=== PATIENT | female | born 1980 | race Caucasian/White ===

== ENCOUNTER 2018-09-01 16:57 | Emergency (ER) | payer BC ==
[~2018-09-01] VITALS: Ht 162.6 cm; Wt 104.5 kg
[2018-09-01 17:10] VITALS: Ht 162.6 cm; Wt 104.5 kg
[2018-09-01] MEDS ORDERED: ONDANSETRON (ODT) 4 MG TAB ODT STA (18:30)
[2018-09-01] MEDS ORDERED: KETOROLAC 30 MG INJ IM STA (18:30)
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
[2018-09-01] MEDS ORDERED: LORAZEPAM 0.5 MG TAB PO ONE (19:00)
[2018-09-01] MEDS ORDERED: ONDA4TAB14 PO (19:52)
[2018-09-01] MEDS ORDERED: NAPR-985 PO (19:52)
[2018-09-01] MEDS ORDERED: CYCL10TA7 PO (19:52)
[2018-09-01 20:10] VITALS: BP 139/67; PULSE 97; RESP 20
== END 2018-09-01 20:11 | disposition home or self-care (01) ==
LOC: FTE 16:57
DX: S16.1XXA Strain of muscle, fascia and tendon at neck level, initial encounter (principal); V46.5XXA Car driver injured in collision with other nonmotor vehicle in traffic accident, initial encounter
CPT/HCPCS: 72050; 73030; 81003; 81025; 96372; 99284; J1885